=== PATIENT | female | born 1985 | race Two or more races ===

== ENCOUNTER 2018-07-20 07:55 | Emergency (ER) | payer MEDICAID ==
[~2018-07-20] VITALS: Ht 149.9 cm; Wt 52.2 kg
[2018-07-20 08:00] VITALS: Ht 149.9 cm; Wt 52.2 kg
[2018-07-20 09:59] VITALS: BP 110/75
== END 2018-07-20 09:59 | disposition home or self-care (01) ==
LOC: ED 07:55
DX: S16.1XXA Strain of muscle, fascia and tendon at neck level, initial encounter (principal); S80.02XA Contusion of left knee, initial encounter; S80.01XA Contusion of right knee, initial encounter; S20.212A Contusion of left front wall of thorax, initial encounter; V43.52XA Car driver injured in collision with other type car in traffic accident, initial encounter; W22.11XA Striking against or struck by driver side automobile airbag, initial encounter; Y93.I9 Activity, other involving external motion; Y92.413 State road as the place of occurrence of the external cause; Y99.8 Other external cause status